=== PATIENT | male | born 1940 | race Caucasian/White ===

== ENCOUNTER 2016-11-28 10:28 | Inpatient (IN) | payer MEDICARE, OTHER ==
[~2016-11-28] VITALS: Ht 170.2 cm; Wt 72.7 kg
[2016-11-28 11:05] LABS: EOS % 0.3 % (0.8-7.0); GRAN # 5.4 10_X3_uL (1.8-5.4); GRAN % 94.3 % (34.0-67.9); HEMATOCRIT 45.2 % (40-51); HEMOGLOBIN 15.6 g/dL (13.7-17.5); LYMPH # 0.3 10_X3_uL (1.3-3.6); LYMPH % 4.7 % (21.8-53.1); MEAN CORPUSCULAR HEMOGLOBIN 31.3 pg (27.0-33.0); MEAN CORPUSCULAR HGB CONC 34.5 g/dL (32.0-36.0); MEAN CORPUSCULAR VOLUME 90.8 fL (79-92); MEAN PLATELET VOLUME 10.8 fl (7.5-11.5); MONO % 0.7 % (5.3-12.2); PLATELET COUNT 183 x10_3/uL (163-337); RED BLOOD COUNT 4.98 x10_6/uL (4.6-6.1); RED CELL DISTRIBUTION WIDTH 13.1 % (11.6-14.4); WHITE BLOOD COUNT 5.8 x10_3/uL (4.2-9.1)
[2016-11-28 11:21] LABS: ALBUMIN 3.8 gm/dL (3.4-5.0); ALKALINE PHOSPHATASE 77 U/L (50-136); ALT/SGPT 18 U/L (7.53-40.17); AMYLASE 78 U/L (15.62-74.58); AST/SGOT 22 U/L (6.66-35.34); BLOOD UREA NITROGEN 30 mg/dL (7-18); CALCIUM 8.7 mg/dL (8.7-10.7); CARBON DIOXIDE 23 mmol/L (21-32); CREATINE KINASE 152 U/L (35-232); CREATININE 1.1 mg/dL (0.6-1.3); GLUCOSE,RANDOM 147 mg/dL (70-99); LIPASE 25 U/L (6.75-60.75); POTASSIUM 4.7 mmol/L (3.5-5.1); SODIUM 138 mmol/L (136-145); TOTAL PROTEIN 5.9 gm/dL (6.4-8.2)
[2016-11-28 11:38] LABS: URINE BILIRUBIN NEGATIVE (NEGATIVE); URINE BLOOD TRACE (NEGATIVE); URINE GLUCOSE (UA) NORMAL (NORMAL); URINE KETONE NEGATIVE (NEGATIVE); URINE LEUKOCYTE ESTERASE TRACE (NEGATIVE); URINE NITRATE NEGATIVE (NEGATIVE); URINE PROTEIN NEGATIVE (NEGATIVE); UROBILINOGEN NORMAL mg/dL (<1.0)
[2016-11-28 11:49] LABS: URINE BACTERIA TRACE (NONE SEEN); URINE RBC 0-5 /[HPF] (0-2); URINE SQUAMOUS EPITHELIAL CELL 0-10 /[HPF] (NONE SEEN); URINE WBC 0-5 /[HPF] (0-3)
[2016-11-29 07:13] LABS: BASO % 0.3 % (0.2-1.2); GRAN # 6.2 10_X3_uL (1.8-5.4); GRAN % 90.7 % (34.0-67.9); HEMATOCRIT 37.9 % (40-51); HEMOGLOBIN 12.8 g/dL (13.7-17.5); LYMPH # 0.3 10_X3_uL (1.3-3.6); LYMPH % 4.9 % (21.8-53.1); MEAN CORPUSCULAR HEMOGLOBIN 31.4 pg (27.0-33.0); MEAN CORPUSCULAR HGB CONC 33.8 g/dL (32.0-36.0); MEAN CORPUSCULAR VOLUME 93.1 fL (79-92); MEAN PLATELET VOLUME 10.6 fl (7.5-11.5); MONO # 0.3 10_X3_uL (0.3-0.8); MONO % 4.1 % (5.3-12.2); PLATELET COUNT 145 x10_3/uL (163-337); RED BLOOD COUNT 4.07 x10_6/uL (4.6-6.1); RED CELL DISTRIBUTION WIDTH 13.4 % (11.6-14.4); WHITE BLOOD COUNT 6.8 x10_3/uL (4.2-9.1)
[2016-11-29 07:27] LABS: CALCIUM 7.8 mg/dL (8.7-10.7); CARBON DIOXIDE 21 mmol/L (21-32); GLUCOSE,RANDOM 136 mg/dL (70-99); POTASSIUM 3.9 mmol/L (3.5-5.1); SODIUM 136 mmol/L (136-145)
[2016-11-29 07:31] LABS: BLOOD UREA NITROGEN 22 mg/dL (7-18)
[2016-11-30 06:46] LABS: HEMATOCRIT 40.1 % (40-51); HEMOGLOBIN 13.7 g/dL (13.7-17.5); MEAN CORPUSCULAR HEMOGLOBIN 31.4 pg (27.0-33.0); MEAN CORPUSCULAR HGB CONC 34.2 g/dL (32.0-36.0); MEAN CORPUSCULAR VOLUME 91.8 fL (79-92); MEAN PLATELET VOLUME 11.3 fl (7.5-11.5); RED BLOOD COUNT 4.37 x10_6/uL (4.6-6.1); RED CELL DISTRIBUTION WIDTH 13.2 % (11.6-14.4); WHITE BLOOD COUNT 8.8 x10_3/uL (4.2-9.1)
[2016-11-30 07:07] LABS: ALBUMIN 3.2 gm/dL (3.4-5.0); ALKALINE PHOSPHATASE 64 U/L (50-136); ALT/SGPT 22 U/L (7.53-40.17); AST/SGOT 18 U/L (6.66-35.34); BILIRUBIN,TOTAL 0.38 mg/dL (0.0-1.0); BLOOD UREA NITROGEN 17 mg/dL (7-18); CALCIUM 8.7 mg/dL (8.7-10.7); CARBON DIOXIDE 18 mmol/L (21-32); CREATININE 0.9 mg/dL (0.6-1.3); GLUCOSE,RANDOM 279 mg/dL (70-99); MAGNESIUM 1.7 mg/dL (1.8-2.4); POTASSIUM 4.4 mmol/L (3.5-5.1); SODIUM 136 mmol/L (136-145); TOTAL PROTEIN 5.2 gm/dL (6.4-8.2)
== END 2016-12-01 09:47 | disposition home or self-care (01) | DRG 871 ==
LOC: ER 10:28 → MS 12:52 → UNDODEPER 11-29 14:25 → MS 12-01 09:47
PROVIDERS: Emergency Medicine; ADMIT Family Medicine
DX: A41.9 Sepsis, unspecified organism (principal); J18.9 Pneumonia, unspecified organism; J44.1 Chronic obstructive pulmonary disease with (acute) exacerbation; J90 Pleural effusion, not elsewhere classified; A49.8 Other bacterial infections of unspecified site; R09.02 Hypoxemia; E86.0 Dehydration; Z79.899 Other long term (current) drug therapy; G47.00 Insomnia, unspecified; Z83.3 Family history of diabetes mellitus; Z82.49 Family history of ischemic heart disease and other diseases of the circulatory system; F41.9 Anxiety disorder, unspecified; K21.9 Gastro-esophageal reflux disease without esophagitis; N40.0 Benign prostatic hyperplasia without lower urinary tract symptoms; M81.0 Age-related osteoporosis without current pathological fracture; E78.5 Hyperlipidemia, unspecified
CPT/HCPCS: 36415; 71010; 71250; 80048; 80053; 81001; 82150; 82550; 82553; 82962; 83605; 83690; 83735; 85025; 86738; 87040; 87186; 87400; 87449; 93005; 94640; 96361; 96365; 96375; 99070; 99284; 99284-25; J2930

== ENCOUNTER 2016-11-28 10:28 | Emergency (ER) | payer MEDICARE, OTHER | END 2016-11-28 12:52 | disposition other institution (70) | LOC: ER 10:28 | DX: J84.9 Interstitial pulmonary disease, unspecified (principal); R00.0 Tachycardia, unspecified; R11.2 Nausea with vomiting, unspecified | CPT/HCPCS: 99284; 99284-25 ==